=== PATIENT | female | born 1995 | race American Indian/Alaskan Native ===

== ENCOUNTER 2021-11-09 11:44 | Emergency (ER) | payer SELFPAY ==
[2021-11-09 13:00] VITALS: BP 154/96
--- NOTE | 2021-11-09 13:02 | Emergency Department Report ---
ED Lower Extremity HPI - General Stated Complaint: POSSIBLE BROKEN TOE Time Seen by Provider: 11/09/21 12:57 Source: patient Mode of arrival: Wheelchair Limitations: Physical Limitation - History of Present Illness Initial Comments: 25-year-old female with no significant medical history presents with right big toe pain. Patient reports she has been experiencing pain in the right great toe x3 days, she is unsure of how she injured it, but she thinks either "something fell on it or she stopped it". Describes swelling, difficulty ambulating and bearing weight on her foot. She denies history of arthritis gout, no weakness numbness tingling the extremity. MD Complaint: foot injury -: Gradual, days(s) Injury: Toes: Right Type of Injury: unknown Severity: moderate Improves With: rest Worsens With: weight bearing, movement, palpation Associated Symptoms: denies: snap/pop sensation, swelling Treatments Prior to Arrival: NSAIDS - Related Data Previous Rx's Medication Instructions Recorded Last Taken Type Ibuprofen [Motrin 800 MG tab] 800 mg PO TID PRN #20 tablet 11/09/21 Unknown Rx Allergies Allergy/AdvReac Type Severity Reaction Status Date / Time No Known Allergies Allergy Verified 11/09/21 13:00 ED Review of Systems ROS: Stated complaint: POSSIBLE BROKEN TOE Other details as noted in HPI Eyes: as per HPI ENT: as per HPI Respiratory: denies: cough, orthopnea Cardiovascular: denies: chest pain, palpitations, orthopnea, edema Endocrine: denies: excessive sweating Gastrointestinal: denies: abdominal pain, nausea, vomiting Genitourinary: as per HPI. denies: urgency Musculoskeletal: joint swelling, arthralgia. denies: back pain Skin: denies: rash Neurological: denies: headache, weakness, numbness, paresthesias ED Past Medical Hx - Medications Home Medications: Home Medications Medication Instructions Recorded Confirmed Last Taken Type Ibuprofen [Motrin 800 MG tab] 800 mg PO TID PRN #20 tablet 11/09/21 Unknown Rx ED Physical Exam - General Limitations: No Limitations General appearance: alert, in no apparent distress - Head Head exam: Present: atraumatic - Eye Eye exam: Present: normal appearance Pupils: Present: normal accommodation - ENT ENT exam: Present: normal exam, normal orophraynx - Neck Neck exam: Present: normal inspection. Absent: tenderness - Respiratory Respiratory exam: Present: normal lung sounds bilaterally. Absent: respiratory distress, wheezes - Cardiovascular Cardiovascular Exam: Present: regular rate, normal rhythm - GI/Abdominal GI/Abdominal exam: Present: soft - Extremities Exam Extremities exam: Present: normal inspection, tenderness, normal capillary refill, joint swelling. Absent: full ROM - Expanded Lower Extremity Exam Right Foot/Toe exam: Present: tenderness, swelling Neuro vascular tendon exam: Present: no vascular compromise Gait: Positive: observed and limited by pain 1 - ttp. No obvious deformity, no bruising or discoloration or lacerations. Cap refill sensation pulses intact. - Back Exam Back exam: Present: normal inspection, full ROM - Neurological Exam Neurological exam: Present: alert, oriented X3, normal gait - Psychiatric Psychiatric exam: Present: normal affect, normal mood - Skin Skin exam: Present: warm, dry, intact, normal color ED Course Vital Signs 11/09/21 12:55 Temperature 97.7 F Pulse Rate 69 Blood Pressure 154/96 [Right] O2 Sat by Pulse 100 Oximetry ED Lower Extremity MDM - Radiology Data Radiology results: report reviewed Negative for acute fractures or dislocation - Medical Decision Making Right big toe pain, negative for acute fractures or dislocations on x-ray, patient is neurovascularly intact, intact cap refill pulses sensation, pain is worse when she tries to ambulate. Based on history examination placed in or thopedic shoe, Serafin wrap, RICE therapy, NSAIDs, with referral to director of regulatory affairs. Patient remained stable nontoxic-appearing, afebrile, ambulating steadily without assistance. Gone over ED findings with patient as well as plan for follow-up. Also discussed return precautions with patient, all questions and concerns addressed. Patient is stable to be discharged follow-up outpatient. Audio voice dictation device used, hence the chart might contain some dictation errors, mispronunciations, wrong spelling and wrong verbiage. Critical care attestation.: If time is entered above; I have spent that time in minutes in the direct care of this critically ill patient, excluding procedure time. ED Disposition Clinical Impression: Injury of toe on right foot Disposition: 01 HOME / SELF CARE / HOMELESS Is pt being admited?: No Does the pt Need Aspirin: No Condition: Stable Instructions: Crush Injury of the Foot, [id number], RICE Therapy for Routine Care of Injuries, [id number] Prescriptions: Ibuprofen [Motrin 800 MG tab] 800 mg PO TID PRN #20 tablet PRN Reason: Pain , Severe (7-10) Referrals: MIKIE JONES MD [Staff Physician] - 3-5 Days Forms: Work/School Release Form(ED)
--- NOTE | 2021-11-09 13:37 | XRay Report ---
Right foot 3 views INDICATION: Big toe pain FINDINGS: MTP joints and IP joints appear normal. Midfoot alignment appears normal. Calcaneus and nicole us appear normal. IMPRESSION: No acute findings. Signer Name: Alexi Sanchez MD Signed: 11/09/2021 1:32 PM Workstation Name: [id number]
[2021-11-09] MEDS ORDERED: IBUPROFEN 800 MG TAB PO ONE (15:24)
== END 2021-11-09 15:30 | disposition home or self-care (01) ==
LOC: EDBD → ED 11:44
DX: S99.921A Unspecified injury of right foot, initial encounter (principal); Z79.899 Other long term (current) drug therapy; W22.8XXA Striking against or struck by other objects, initial encounter; Y93.89 Activity, other specified; Y92.89 Other specified places as the place of occurrence of the external cause; Y99.8 Other external cause status
CPT/HCPCS: 99283